=== PATIENT | male | born 1965 | race Two or more races ===

== ENCOUNTER 2022-08-13 10:50 | Emergency (ER) | payer OTHER ==
[~2022-08-13] VITALS: Ht 188 cm; Wt 68.2 kg
[2022-08-13 10:59] VITALS: BP 125/74
[2022-08-13] MEDS ORDERED: MECL-134 PO (14:19)
[2022-08-13] MEDS ORDERED: ACET-66 PO (14:19)
== END 2022-08-13 14:40 | disposition home or self-care (01) ==
LOC: EMS 10:53
DX: S00.03XA Contusion of scalp, initial encounter (principal); S00.83XA Contusion of other part of head, initial encounter; S10.93XA Contusion of unspecified part of neck, initial encounter; R42 Dizziness and giddiness; M48.32 Traumatic spondylopathy, cervical region; F17.210 Nicotine dependence, cigarettes, uncomplicated; W22.01XA Walked into wall, initial encounter; Y93.89 Activity, other specified; Y92.89 Other specified places as the place of occurrence of the external cause; Y99.8 Other external cause status
CPT/HCPCS: 70450; 72125; 99284